=== PATIENT | male | born 1995 | race African-American/Black ===

== ENCOUNTER 2019-05-25 11:13 | Emergency (ER) | payer SELFPAY | END 2019-05-25 12:53 | disposition home or self-care (01) | LOC: NAV ERS 11:13 | DX: R11.2 Nausea with vomiting, unspecified (principal); R19.7 Diarrhea, unspecified; F17.210 Nicotine dependence, cigarettes, uncomplicated | CPT/HCPCS: 99283 ==

== ENCOUNTER 2019-09-26 11:35 | Emergency (ER) | payer SELFPAY | END 2019-09-26 12:30 | disposition home or self-care (01) | LOC: NAV ERS 11:35 | DX: J11.1 Influenza due to unidentified influenza virus with other respiratory manifestations (principal); F17.210 Nicotine dependence, cigarettes, uncomplicated | CPT/HCPCS: 87804; 99283 ==